=== PATIENT | female | born 1985 ===

== ENCOUNTER → 2022-12-09 | Day surgery (SDC) | payer OTHER ==
[~2022-12-09] VITALS: Ht 175.3 cm; Wt 68.9 kg
[~2022-12-09] MED LIST: LAMICTAL25 MG PO; SILVADENE20 GM TOP; TRAM1TAB98 PO
== END | disposition home or self-care (01) ==
LOC: ADM 12-03 10:45 → CIR.AMB 07:00
PROVIDERS: ATTEND Obstetrics & Gynecology
DX: D28.0 Benign neoplasm of vulva (principal); Z20.822 Contact with and (suspected) exposure to COVID-19; Z88.0 Allergy status to penicillin; Z88.6 Allergy status to analgesic agent